=== PATIENT | female | born 1965 | race Caucasian/White ===

== ENCOUNTER → 2016-08-25 | Outpatient (CLI) | payer OTHER ==
[2016-08-25 12:47] LABS: HEMATOCRIT 42.3 % (37.0-47.0); HEMOGLOBIN 14.5 gm/dL (12.0-15.0); MCH 33.4 pg (26.0-34.0); MCHC 34.1 g/dL (28.0-37.0); MCV 97.8 fL (80.0-100.0); RBC 4.33 mil/uL (4.20-5.00); RDW 12.1 % (10.5-14.5); WBC 6.8 thou/uL (4.0-11.0)
[2016-08-25 13:04] LABS: ALBUMIN 4.2 g/dL (3.4-5.0); ALKALINE PHOSPHATASE 94 U/L (46-116); ANION GAP 10 mmol/L (7-16); BUN 13 mg/dL (7-18); CHLORIDE 105 mmol/L (98-107); CHOLESTEROL 255 mg/dL (<200); CO2 27 mmol/L (21-32); CREATININE 0.6 mg/dL (0.6-1.0); GLUCOSE 95 mg/dL (74-106); HDL CHOLESTEROL 61 mg/dL (>40); LDL CHOLESTEROL 167 mg/dL (<100); POTASSIUM 3.6 mmol/L (3.5-5.1); SGOT 22 U/L (15-37); SGPT 28 U/L (30-65); SODIUM 142 mmol/L (136-145); TC:HDL 4.2 Ratio (Not establshd); TOTAL BILIRUBIN 0.4 mg/dL (<0.1-1.0); TOTAL PROTEIN 7.6 g/dL (6.4-8.2); TRIGLYCERIDE 135 mg/dL (<150); VLDL 27 mg/dL (<40)
[2016-08-26 06:12] LABS: FREE T4 1.11 ng/dL (0.82-1.77)
[2016-08-26 07:16] LABS: PROGESTERONE 0.3 ng/mL (()); TESTOSTERONE* 14 ng/dL (3-41)
[2016-08-26 11:10] LABS: 25-HYDROXY TOTAL 33.5 ng/mL (30.0-100.0)
== END ==
LOC: LABMALL 11:38
PROVIDERS: Obstetrics & Gynecology
DX: Z13.220 Encounter for screening for lipoid disorders (principal); R53.83 Other fatigue; R63.5 Abnormal weight gain

== ENCOUNTER → 2017-02-23 | Outpatient (CLI) | payer OTHER | LOC: RAD 02:19 | DX: Z12.31 Encounter for screening mammogram for malignant neoplasm of breast (principal) ==